=== PATIENT | male | born 1985 | race Caucasian/White ===

== ENCOUNTER 2022-01-26 17:30 | Emergency (ER) | payer OTHER ==
[2022-01-26 17:50] VITALS: BP 133/80; PULSE 93; RESP 20; TEMP 98.5; BMI 41.9
== END 2022-01-26 23:29 | disposition home or self-care (01) ==
LOC: JER 17:30
DX: U07.1 COVID-19 (principal); R05.1 Acute cough
CPT/HCPCS: 99283-25; C9803-CS; U0003; U0005

== ENCOUNTER 2023-09-24 12:45 | Emergency (ER) | payer SELFPAY ==
[2023-09-24 13:04] VITALS: BP 147/95; PULSE 89; RESP 18; TEMP 98; BMI 31.3
[2023-09-24] MEDS ORDERED: ONDANSETRON *ODT* 4 MG TABLET ONE (14:02)
[2023-09-24] MEDS ORDERED: ACETAMINOPHEN 325 MG TABLET (FP) ONE (14:03)
[2023-09-24 14:33] LABS: BASO % 0.4 % (0-2.0); EOS % 1.5 % (0-4.5); LYMPH % 24.5 % (8-40); MCH 30.3 pg (25.7-33.7); MCHC 34.8 g/dl (32.0-35.9); MEAN CELL VOLUME 87.1 fl (80-96); MEAN PLT VOLUME 7.1 fl (7.5-11.1); MONO % 7.3 % (3.8-10.2); NEUT % 66.3 % (42.8-82.8); PLATELET COUNT 327 10^3/uL (134-434); RBC 4.94 M/mm3 (4.00-5.60); RDW 14.2 % (11.9-15.9); WHITE BLOOD COUNT 11.1 K/mm3 (4.0-10.0)
[2023-09-24] MEDS: ONDANSETRON *ODT* 4 MG TABLET SL ONE (14:47)
[2023-09-24] MEDS: ACETAMINOPHEN 500 MG TABLET (FP) PO ONE (14:47)
[2023-09-24 15:00] LABS: POTASSIUM 4.3 mmol/L (3.5-5.1)
[2023-09-24 15:04] LABS: ALBUMIN 3.8 g/dl (3.4-5.0)
[2023-09-24 15:07] LABS: CREATININE 0.8 mg/dL (0.55-1.3)
[2023-09-24] MEDS ORDERED: ALBUTEROL SO4 2.5/IPRATROPIUM 0.5 INH SOL 3 ML VIAL.NEB. NEB ONE (15:07)
[2023-09-24 15:08] LABS: BILIRUBIN,TOTAL 0.5 mg/dL (0.2-1); TOT PROT 7.3 g/dl (6.4-8.2)
[2023-09-24] MEDS: ALBUTEROL SO4 2.5/IPRATROPIUM 0.5 INH SOL 3 ML VIAL.NEB. NEB ONE ×2 (15:14)
== END 2023-09-24 15:57 | disposition home or self-care (01) ==
LOC: JER 12:45
PROC: 3E0F7GC Introduction of Other Therapeutic Substance into Respiratory Tract, Via Natural or Artificial Opening (ICD-10-PCS; principal; 2023-09-24)
PROC: 3E0F7GC Introduction of Other Therapeutic Substance into Respiratory Tract, Via Natural or Artificial Opening (ICD-10-PCS; 2023-09-24)
DX: R07.9 Chest pain, unspecified (principal); R06.02 Shortness of breath
CPT/HCPCS: 36415; 71046-TC-FY; 80053; 84484; 85025; 93005; 93010; 99285-25; Q0162